=== PATIENT | male | born 1945 | race Caucasian/White ===

== ENCOUNTER 2016-09-08 04:56 | Day surgery (SDC) | payer MEDICARE, BC ==
[~2016-09-08 04:56] MED LIST: ANSAID100 MG OR; COREG25 PO; FLURBIPROFEN100 MG PO; GLUCPH PO; LORTAB10 PO; MOBIC15 MG PO; PRIN10 PO
== END 2016-09-08 07:46 | disposition home or self-care (01) ==
LOC: SDC 04:56
PROVIDERS: Orthopaedic Surgery
PROC: 3E0S3BZ Introduction of Anesthetic Agent into Epidural Space, Percutaneous Approach (ICD-10-PCS; 2016-09-08)
PROC: 3E0S33Z Introduction of Anti-inflammatory into Epidural Space, Percutaneous Approach (ICD-10-PCS; principal; 2016-09-08 07:30)
DX: M54.16 Radiculopathy, lumbar region (principal); E11.9 Type 2 diabetes mellitus without complications; I10 Essential (primary) hypertension; M19.90 Unspecified osteoarthritis, unspecified site; Z98.890 Other specified postprocedural states; Z87.442 Personal history of urinary calculi
CPT/HCPCS: 82962; J1040; J2250; J3010; Q9967

== ENCOUNTER 2016-09-26 04:57 | Day surgery (SDC) | payer MEDICARE, BC | END 2016-09-26 07:44 | disposition home or self-care (01) | LOC: SDC 04:57 | PROVIDERS: Orthopaedic Surgery | PROC: 3E0S33Z Introduction of Anti-inflammatory into Epidural Space, Percutaneous Approach (ICD-10-PCS; principal; 2016-09-26 07:15) | DX: M54.16 Radiculopathy, lumbar region (principal); I10 Essential (primary) hypertension; E11.9 Type 2 diabetes mellitus without complications; M19.90 Unspecified osteoarthritis, unspecified site; Z87.442 Personal history of urinary calculi; Z98.890 Other specified postprocedural states; Z87.891 Personal history of nicotine dependence | CPT/HCPCS: 82962; J1040; J2250; J3010; Q9967 ==